=== PATIENT | female | born 1970 | race Caucasian/White ===

== ENCOUNTER 2017-04-07 12:43 | Inpatient (IN) | payer OTHER ==
[~2017-04-07] VITALS: Ht 162.6 cm; Wt 85.9 kg
[~2017-04-07 12:43] MED LIST: IBUP-1542 PO; METR500T PO
[2017-04-07 13:54] VITALS: BP 109/71; PULSE 81; RESP 18
[2017-04-07 13:59] VITALS: Ht 162.6 cm; Wt 85.9 kg
[2017-04-07] MEDS ORDERED: PRENAT PO (13:59)
[2017-04-07] MEDS: LACTATED RINGER'S 1,000 ML IV SCH ×4 (13:59→21:59)
[2017-04-07] MEDS ORDERED: METHYLERGONOVINE 0.2 MG INJ IM PRN (14:00)
[2017-04-07] MEDS ORDERED: CARBOPROST 250 MCG INJ IM PRN (14:00)
[2017-04-07] MEDS ORDERED: OXYTOCIN 30 UNITS/LR 500 ML IV PRN (14:00)
[2017-04-07] MEDS ORDERED: OXYTOCIN 30 UNITS/LR 500 ML IV SCH (14:00)
[2017-04-07] MEDS ORDERED: MISOPROSTOL 200 MCG TAB PR PRN (14:00)
[2017-04-07] MEDS ORDERED: CEFAZOLIN 2 GM/50 ML (PMX) 50 ML IV SCH (14:00)
[2017-04-07 14:45] LABS: ADD SCAN DIFF NO; BASOPHILS % 0.3 % (0.0-2.0); EOSINOPHILS # 0.1 10^3/ul (0.0-0.5); EOSINOPHILS % 0.6 % (0.0-7.0); HEMOGLOBIN 11.6 g/dl (12.0-16.0); LYMPHOCYTES # 1.7 10^3/ul (0.8-2.9); LYMPHOCYTES % 17.7 % (15.0-51.0); MEAN CORPUSCULAR HEMOGLOBIN 29.4 pg (29.0-33.0); MEAN CORPUSCULAR HGB CONC 33.1 g/dl (32.0-37.0); MEAN CORPUSCULAR VOLUME 88.6 fl (82.0-101.0); MONOCYTE # 0.7 10^3/ul (0.3-0.9); MONOCYTES % 7.9 % (0.0-11.0); NEUTROPHIL # 6.7 10^3/ul (1.6-7.5); NEUTROPHILS % 71.8 % (39.0-77.0); PLATELET COUNT 190 10^3/UL (140-415); RED BLOOD COUNT 3.95 10^6/ul (4.20-5.40); RED CELL DISTRIBUTION WIDTH 13.6 % (11.5-14.5); WHITE BLOOD COUNT 9.3 10^3/ul (4.8-10.8)
[2017-04-07 15:00] LABS: INR 0.93; PROTIME 12.5 Sec (12.2-14.2)
[2017-04-07 15:01] LABS: PARTIAL THROMBOPLASTIN TIME 25.2 Sec (25.0-35.0)
[2017-04-07] MEDS: DEXTROSE 5%-LR 1,000 ML IV SCH ×2 (15:09→21:59)
[2017-04-07] MEDS ORDERED: LACTATED RINGER'S 1,000 ML IV ONE (16:11)
[2017-04-07] MEDS ORDERED: CITRIC ACID/SODIUM CITRATE 15 ML CUP PO ONE (16:30)
[2017-04-07] MEDS ORDERED: FAMOTIDINE 20 MG INJ IV ONE (16:30)
[2017-04-07] MEDS ORDERED: METOCLOPRAMIDE 10 MG INJ IV ONE (16:30)
[2017-04-07] MEDS ORDERED: morphine SULFATE/PF (10 MG/10 ML) INJ ONE (18:30)
[2017-04-07] MEDS ORDERED: FENTAnyl 50 MCG/ML VIAL ONE (18:30)
[2017-04-07] MEDS ORDERED: PHENYLephrine (100 MCG/ML) 5ML SYG ONE (18:39)
--- NOTE | 2017-04-07 18:45 | PREOPHP ---
DATE OF ADMISSION: 04/07/2017 HISTORY OF PRESENT ILLNESS: The patient is a 46-year-old female 4, para 3, estimated date o f delivery 04/11/2017 at 39 weeks and 3 days is admitted for primary section due to m acrosomia. The patient also desires surgical sterilization. PAST MEDICAL HISTORY: Unremarkable. PAST SURGICAL HISTORY: Unremarkable. FAMILY HISTORY: Noncontributory. COURSE: Significant for gestational diabetes. PHYSICAL EXAMINATION: VITAL SIGNS: The patient is afebrile. Vital signs stable. HEAD, NECK AND CHEST: Within normal limits. ABDOMEN: Soft, nontender and gravid. EXTREMITIES: Within normal limits. NEUROLOGIC: Within normal limits. Obstetric ultrasound revealed an estimated weight of 4500 g. IMPRESSION: at term with gestational diabetes, macrosomia and voluntary sterilizati on. PLAN: Delivery by primary section and bilateral tubal ligation. Risks, benefits and alter natives of the procedures were explained to patient. The patient has been counseled about all of he r contraceptive options. It was explained to patient that with bilateral tubal ligation there is a chance of failure resulting in ectopic and/or intrauterine . After counseling, t he patient said she understood and gave informed consent for the procedures. Dictated By: GENE DIAMOND/HONG Conf#: [id number] DID#: [id number]
[2017-04-07] MEDS ORDERED: NALOXONE (0.4 MG/ML) INJ IV PRN (19:00)
[2017-04-07] MEDS ORDERED: FENTAnyl 50 MCG/ML VIAL IV PRN (19:00)
[2017-04-07] MEDS ORDERED: DIPHENHYDRAMINE 50 MG INJ IV PRN ×2 (19:00)
[2017-04-07] MEDS ORDERED: ONDANSETRON 4 MG INJ IV PRN ×2 (19:00)
[2017-04-07] MEDS ORDERED: HYDROmorphONE 1 MG/ML SYG IV PRN ×2 (19:00)
[2017-04-07] MEDS ORDERED: ONDANSETRON 4 MG INJ ONE (19:00)
[2017-04-07] MEDS ORDERED: ZOLPIDEM 5 MG TAB PO PRN (19:00)
[2017-04-07] MEDS ORDERED: HYDROmorphONE (0.2 MG/ML) 10ML SYG IV PRN (19:00)
[2017-04-07] MEDS ORDERED: PROCHLORPERAZINE 10 MG INJ IV PRN ×2 (19:00)
[2017-04-07] MEDS ORDERED: MEPERIDINE 25 MG INJ IV PRN (19:00)
[2017-04-07] MEDS ORDERED: EPHEDrine SULFATE 50 MG/5 ML SYG ONE (19:11)
[2017-04-07] MEDS ORDERED: OXYTOCIN 30 UNITS/LR 500 ML IV ONE (19:14)
--- NOTE | 2017-04-07 20:20 | OPR ---
DATE OF OPERATION: 04/07/2017 PREOPERATIVE DIAGNOSES: at term with gestational diabetes, suspected macrosomia and voluntary sterilization. POSTOPERATIVE DIAGNOSES: at term with gestational diabetes, suspected macrosomia and voluntary sterilization. OPERATION PERFORMED: Primary low transverse section and bilateral tubal ligation. SURGEON: Dr. Fregoso. REAL ESTATE AGENCY PRINCIPAL: Dr. Osmar Sinha MD ANESTHESIA: Spinal. ANESTHESIOLOGIST: Dr. Sarabia. PROCEDURE: The patient was taken to the operating room and placed on the operating table. After successful spinal anesthesia was given, the patient was placed in supine position. The area was prepared and draped in the usual sterile fashion. Spinal anesthesia was tested and was satisfactory. Using a scalpel, Pfannenstiel incision was made about 2 fingerbreadths above the symphysis pubis. The incision was carried to the fascia. The fascia was incised and extended bilaterally with Matta scissors. Two Kochers were used to separate the fascia from the muscle. The muscle was dissected down to peritoneum. The peritoneum was bluntly entered. Using a scalpel, a small transverse incision was made on the lower segment of the uterus. Upon entering the uterine cavity, bandage scissors were inserted to extend the incision bilaterally, curved up. Baby was delivered from cephalic presentation. There was a nuchal cord. After suctioning clear of amniotic fluid, baby was handed off to the mechanic recovery in attendance. Apgars were 9 and 9. The placenta was delivered without difficulty. Uterus was closed with #1 Monocryl continuous locked. After assuring hemostasis, both ovaries and tubes were inspected, all looked normal. The right fallopian tube was grasped with a Jessica clamp. Using 0 plain suture ligature, a 5 cm segment of the right fallopian tube was doubly ligated. Using Metzenbaum scissors, a portion of the right fallopian tube above the ligated area was excised and sent to pathology. Same procedure was repeated on the left fallopian tube. After assuring hemostasis, the peritoneal cavity was irrigated with warm saline. Peritoneum was closed with 2- 0 Vicryl continuous. The fascia was closed with #1 Vicryl continuous in 2 segments. Subcutaneous tissue was reapproximated with 2-0 plain. The skin was closed with ancelmo. ESTIMATED BLOOD LOSS: 600 mL. COMPLICATIONS: None. COUNTS: All counts were correct. Dictated By: GENE FREGOSO MD GD/NTS Conf#: [id number] DID#: [id number] ARGENIS
[2017-04-07 23:00] VITALS: BP 109/63; PULSE 86; RESP 20
[2017-04-07 23:30] VITALS: BP 121/70; PULSE 87; RESP 18
[2017-04-08] VITALS (8 sets, daily range): BP systolic 93–125; BP diastolic 63–70; PULSE 88–97; RESP 14–22
[2017-04-08] MEDS: LACTATED RINGER'S 1,000 ML IV SCH ×4 (00:31→23:17)
[2017-04-08] MEDS: OXYTOCIN 30 UNITS/LR 500 ML IV SCH ×2 (00:55→05:58)
[2017-04-08] MEDS ORDERED: LANOLIN 7 GM TUBE TOP PRN (01:00)
[2017-04-08] MEDS ORDERED: CARBOPROST 250 MCG INJ IM PRN (01:00)
[2017-04-08] MEDS ORDERED: OXYTOCIN 30 UNITS/LR 500 ML IV PRN (01:00)
[2017-04-08] MEDS ORDERED: METHYLERGONOVINE 0.2 MG INJ IM PRN (01:00)
[2017-04-08] MEDS ORDERED: MISOPROSTOL 200 MCG TAB PR PRN (01:00)
[2017-04-08 08:08] LABS: ADD SCAN DIFF NO
[2017-04-08 08:23] LABS: BASOPHILS % 0.2 % (0.0-2.0); EOSINOPHILS % 0.1 % (0.0-7.0); HEMATOCRIT 31.6 % (37.0-47.0); HEMOGLOBIN 10.3 g/dl (12.0-16.0); LYMPHOCYTES # 1.1 10^3/ul (0.8-2.9); LYMPHOCYTES % 8.1 % (15.0-51.0); MEAN CORPUSCULAR HEMOGLOBIN 28.8 pg (29.0-33.0); MEAN CORPUSCULAR HGB CONC 32.6 g/dl (32.0-37.0); MEAN CORPUSCULAR VOLUME 88.3 fl (82.0-101.0); MEAN PLATELET VOLUME 11.1 fl (7.4-10.4); MONOCYTE # 0.8 10^3/ul (0.3-0.9); MONOCYTES % 6.1 % (0.0-11.0); NEUTROPHIL # 11.4 10^3/ul (1.6-7.5); NEUTROPHILS % 84.9 % (39.0-77.0); PLATELET COUNT 166 10^3/UL (140-415); RED BLOOD COUNT 3.58 10^6/ul (4.20-5.40); RED CELL DISTRIBUTION WIDTH 13.7 % (11.5-14.5); WHITE BLOOD COUNT 13.4 10^3/ul (4.8-10.8)
[2017-04-08] MEDS: MAGNESIUM HYDROXIDE 30ML CUP PO PRN (08:45)
--- NOTE | 2017-04-08 14:18 | NSTRPT ---
NST Information Datetime Report Generated by CPN: 04/08/2017 14:17 Datetime: 04/07/2017 11:18 NST Information EGA: 39.3 Test Number: 6 Time on Monitor: 04/07/2017 11:57 Time off Monitor: 04/07/2017 12:19 NST Duration (Min): 22 Reason for NST: Diabetes Mellitus; Other Reason for NST Other: A1DM Test and Monitor Explained: Monitor Explained; Test Explained; Verbalized Understanding Pulse: 90 Resp: 17 SBP: 101 DBP: 63 Test Evaluation NST Interventions: PO Hydration Patient States Movement: Present Contraction Frequency: x2, denies FHR Baseline : 140 Variability: Moderate 6-25bpm Accelerations: 15X15 Decelerations: None FHR Category: Category I NST Results: Reactive Comments: pt to u/s, DEVAN 17.7cm, cephalic EFW 4516gms (99%), AC 99%, Left renal pelvis-22mm (progressed), caliectasis, dliated left ureter FBS 70. Report given to Dr. Fregoso. New orders received. Pt to L_D for delivery. Explained to pt plan of care. Pt states understanding. 1220- Pt to hospital in stable condition as ordered. Electronically Signed By E-Signature: with User ID: [id number] Datetime: 04/05/2017 10:24 NST Information EGA: 39.1 NST Duration (Min): 33 Datetime: 03/31/2017 10:18 NST Information EGA: 38.3 NST Duration (Min): 33 Datetime: 03/28/2017 11:00 NST Information EGA: 38.0 NST Duration (Min): 30 Datetime: 03/24/2017 10:55 NST Information EGA: 37.3 NST Duration (Min): 27 Datetime: 03/21/2017 11:26 NST Information EGA: 37.0 Datetime: 03/21/2017 11:12 NST Duration (Min): 32
[2017-04-08] MEDS: OXYCODONE/ACETAMINOPHEN (5/325) TAB PO PRN (18:44)
[2017-04-08] MEDS ORDERED: OXYCODONE/ACETAMINOPHEN (5/325) TAB PO PRN (19:00)
--- NOTE | 2017-04-08 19:13 | QN ---
Documentation Comment No complaint Afebrile VSS Abdomen soft POD #1 Stable Ambulate Advance diet. GENE STALLWORTH MD Apr 08, 2017 19:13
[2017-04-08] MEDS: SENNA/DOCUSATE NA (8.6MG/50MG) TAB PO SCH (21:31)
[2017-04-08] MEDS ORDERED: IBUPROFEN 800 MG TAB PO SCH (22:00)
[2017-04-09] MEDS: OXYCODONE/ACETAMINOPHEN (5/325) TAB PO PRN ×4 (00:46→18:39)
[2017-04-09 03:50] VITALS: BP 113/70; PULSE 68; RESP 18
[2017-04-09] MEDS: MAGNESIUM HYDROXIDE 30ML CUP PO PRN (07:37)
[2017-04-09 08:40] VITALS: BP 115/71; PULSE 65; RESP 14
[2017-04-09] MEDS: SENNA/DOCUSATE NA (8.6MG/50MG) TAB PO SCH ×2 (10:59→21:30)
--- NOTE | 2017-04-09 14:20 | QN ---
Documentation Comment No complaint Afebrile VSS Abdomen soft POD #2 Stable Continue with present care.. GENE STALLWORTH MD Apr 09, 2017 14:20
[2017-04-09] MEDS ORDERED: BISACODYL 10 MG SUPP PR ONE (16:00)
[2017-04-09 16:55] VITALS: BP 118/79; PULSE 78; RESP 18
[2017-04-09 20:10] VITALS: BP 108/71; PULSE 80; RESP 18
[2017-04-10] MEDS: OXYCODONE/ACETAMINOPHEN (5/325) TAB PO PRN ×3 (02:39→16:11)
[2017-04-10 04:30] VITALS: BP 100/60; PULSE 72; RESP 19
[2017-04-10 08:00] VITALS: BP 118/71; PULSE 83; RESP 16
[2017-04-10] MEDS ORDERED: DIPHTH/TET/ACEL PERTUSS (ADULT) 0.5 ML VIAL IM* ONE (09:00)
[2017-04-10] MEDS: SENNA/DOCUSATE NA (8.6MG/50MG) TAB PO SCH (09:00)
[2017-04-10 16:40] VITALS: BP 117/72; PULSE 71; RESP 18
--- NOTE | 2017-04-13 01:02 | DS ---
DATE OF ADMISSION: 04/07/2017 DATE OF DISCHARGE: 04/10/2017 ADMITTING DIAGNOSES: at term with gestational diabetes and suspected macrosomia. HISTORY: A 46-year-old female 4, para 3 at admission, para 4 at the time of discharge, at 3 9 weeks and 3 days was referred by perinatologist for primary section due to macrosom ia. On 04/07/2017, after obtaining informed consent, the patient underwent a primary low transverse section and bilateral tubal ligation. The patient's operation was uncomplicated. Postope ratively, the patient was given clear liquid diet, which was advanced to regular diet, which she birgit erated well. The patient was discharged on postop day #3 after having had adequate bladder and evi l function. CONDITION ON DISCHARGE: Stable. DISCHARGE INSTRUCTIONS: DIET: Regular. ACTIVITIES: Pelvic rest and no strenuous activities. MEDICATIONS: 1. Motrin as needed for pain. 2. Continue with vitamins. 3. Ferrous sulfate. FOLLOWUP: In clinic in 1 week. FINAL DIAGNOSES: 1. Term , delivered by section. 2. Gestational diabetes. 3. Suspected macrosomia. 4. Bilateral tubal ligation. 5. Mother with single liveborn. Dictated By: GENE STALLWORTH MD GD/NTS Conf#: [id number] DID#: [id number]
== END 2017-04-10 20:10 | disposition home or self-care (01) | DRG 766 ==
LOC: EDSTATUS 12:44 → L-D 12:56 → PP1 23:22
PROVIDERS: ADMIT Obstetrics & Gynecology; ATTEND Obstetrics & Gynecology
PROC: 10D00Z1 Extraction of Products of Conception, Low, Open Approach (ICD-10-PCS; principal; 2017-04-07)
PROC: 0UL70ZZ Occlusion of Bilateral Fallopian Tubes, Open Approach (ICD-10-PCS; 2017-04-07)
DX: O24.429 Gestational diabetes mellitus in childbirth, unspecified control (principal); O36.63X0 Maternal care for excessive fetal growth, third trimester, not applicable or unspecified; Z30.2 Encounter for sterilization; Z3A.39 39 weeks gestation of pregnancy; Z37.0 Single live birth
CPT/HCPCS: 82947; 82962; 85025; 85610; 85730; 86592; 86850; 86900; 86901; 87340; 88302; 90715; 99464; J0690; J1170; J2175; J2274; J2370; J2405; J2590; J2765; J3010; J7120; J7121